=== PATIENT | male | born 1965 | race Caucasian/White ===

== ENCOUNTER 2017-05-22 06:00 | Day surgery (SDC) | payer OTHER ==
[~2017-05-22] VITALS: Ht 193 cm; Wt 98.0 kg
[~2017-05-22 06:00] MED LIST: ASPI-973 PO; DILT120T3 PO; MAGN250T37 PO; MULT1CAP33 PO
[2017-05-22] MEDS: 0.9% Sodium Chloride 1,000 ML IV ONE (16:36)
[2017-05-22] MEDS: fentaNYL-PF 50 mCg/mL 2 mL Inj IVPUSH ONE (16:36)
--- NOTE | 2017-05-22 16:54 | PCM.ENDCOL ---
Colonoscopy Date of Service: May 22, 2017 Physician Hernan Zaragoza MD Pre Procedure Diagnosis: Screening Post Procedure Dx & Findings: Polyps hemorrhoids diverticuli Procedure Colonoscopy PROCEDURE IN DETAIL: Prep adequate Withdrawal time 12 minutes After unremarkable rectal examination the Olympus video colonoscope was inserted patient's anal canal and was advanced to cecum. Landmarks were identified including the ileocecal valve and appendiceal orifice. Scope was withdrawn systematically. Visualized colonic mucosa showed healthy shiny mucosa with normal healthy-appearing vasculature. In the ascending colon there were 2 polyps. First one was about a millimeters in size which was removed completely using cold snare. The cecum was about 6-7 mm in size which was resected using cold snare. In the sigmoid colon several diverticula noted mostly medium size. In the rectum retroflexion was done which showed hemorrhoids. Anal canal was inspected carefully on the way out and hemorrhoids noted. Impression Polyp 2 status post complete removal Diverticula Hemorrhoids Recommendation Repeat colonoscopy 5 years Diverticular diet Presedation Assessment Risks and Benefits Informed consent was obtained from the patient after all risks and benefits including but not limited to drug reaction, infection, pain, bleeding, perforation, as well as alternatives were discussed. Patient monitoring Continuous pulse oximetry, cardiac monitoring, blood pressure monitoring, IV access, and oxygen at 2L per nasal cannula. Periprocedural Fentanyl: Fentanyl 100mcg Incrementally Midazolam: Midazolam 5mg Incrementally Complications There were no periprocedural complications identified. Post Procedure Plan Post Procedure Recommendations 1. Restrict activities today. 2. Resume normal activities in the morning. 3. Resume medications. 4. Patient informed of normal post procedure side effects as bloating, drowsiness, blood streaking in the stool. 5. average risk CRCS. If colon polyps come back as: -Hyperplastic- can repeat colonoscopy in 10 years -Tubular adenoma- repeat colonoscopy in 5 years -Tubulovillous/villous adenoma- repeat colonoscopy in 3 years -If any dysplasia- return to clinic as soon as possible 6. Please don't hesitate to call me with any questions. Hernan Zaragoza MD May 22, 2017 16:54
[2017-05-22 17:13] VITALS: BP 145/97; PULSE 72; RESP 16; O2SAT 98
--- NOTE | 2017-05-26 15:59 | PATH ---
SURGICAL PATHOLOGY Attending Physician:Hernan Zaragoza M.D. CASE STATUS: Signed Out PATIENT NAME: ADRIAN REYES PID: [id number] : 1965 DATE COLLECTED:05/22/2017 00:00 SPECIMEN: Colon, Polyp CLINICAL HISTORY: 1). ASCENDING COLON POLYPS FINAL DIAGNOSIS: Ascending Colon Polyps, Biopsies: - Fragments of sessile serrated adenoma. COMMENT: As part of routine quality control operator, the case was also reviewed by Dr. Parsons, who agrees with the above interpretation. ICD10: D12.6 GROSS DESCRIPTION: The specimen is received in one formalin filled container labeled with the patient's name, sublabeled "ascending colon polyps" and consists of multiple portions of tissue which aggregate to 0.3 x 0.3 x 0.3 CM. All fragments are entirely submitted in one cassette. 05/23/2017DC ICD-9 CODES: CPT CODES: 1: 31157 Electronically Signed Out Mendel Dye MD [facility] [address], [place] [address] Technical component performed at [facility], [facility] [address], [place], [address]
== END 2017-05-22 23:59 | disposition home or self-care (01) ==
LOC: CANPRESDC → END 06:00
PROVIDERS: ATTEND Internal Medicine
DX: Z12.11 Encounter for screening for malignant neoplasm of colon (principal); D12.0 Benign neoplasm of cecum; D12.2 Benign neoplasm of ascending colon; K57.30 Diverticulosis of large intestine without perforation or abscess without bleeding; K64.8 Other hemorrhoids; Z80.0 Family history of malignant neoplasm of digestive organs; I10 Essential (primary) hypertension; E78.5 Hyperlipidemia, unspecified; I80.209 Phlebitis and thrombophlebitis of unspecified deep vessels of unspecified lower extremity; Z87.891 Personal history of nicotine dependence; Z79.82 Long term (current) use of aspirin